=== PATIENT | female | born 1995 | race African-American/Black ===

== ENCOUNTER 2019-12-01 18:42 | Outpatient (CLI) | payer MEDICAID ==
[2019-12-01 19:05] LABS: BASOPHILS % (AUTO) 0.3 %; EOSINOPHILS # (AUTO) 0.1 10^3/uL (0.0-0.7); EOSINOPHILS % (AUTO) 1.8 %; HGB - HEMOGLOBIN 12.3 g/dL (12.0-16.0); LYMPHOCYTES # (AUTO) 1.8 10^3/uL (1.5-3.5); LYMPHOCYTES % (AUTO) 29.7 %; MEAN CORPUSCULAR HEMOGLOBIN 25.5 pg (27.0-31.0); MEAN CORPUSCULAR HGB CONC 31.9 g/dL (32.0-36.0); MEAN CORPUSCULAR VOLUME 79.9 fL (81.0-99.0); MEAN PLATELET VOLUME 11.4 fL (7.9-10.8); MONOCYTES # (AUTO) 0.5 10^3/uL (0.0-1.0); MONOCYTES % (AUTO) 8.2 %; NEUTROPHILS # (AUTO) 3.7 10^3/uL (1.5-6.6); NEUTROPHILS % (AUTO) 59.4 %; PLT - PLATELET COUNT 186 10^3/uL (130-450); RED BLOOD COUNT 4.82 10^6/uL (4.20-5.40); RED CELL DISTRIBUTION WIDTH 14.6 % (12.0-15.0); WHITE BLOOD COUNT 6.2 x10^3/uL (4.8-10.8)
[2019-12-01 19:15] LABS: ALBUMIN 3.2 g/dL (3.2-5.5); ALBUMIN/GLOBULIN RATIO 0.9 (1.0-2.2); BILIRUBIN,TOTAL 0.2 mg/dL (0.2-1.0); CALCIUM 9.3 mg/dL (8.5-10.3); TOTAL PROTEIN 6.8 g/dL (6.7-8.2)
[2019-12-01 19:44] LABS: CREATININE,URINE 118.1 mg/dL; PROTEIN/CREATININE RATIO,URINE 0.1 (<=0.2)
== END 2019-12-01 18:43 | disposition home or self-care (01) ==
LOC: LAB 18:42
PROVIDERS: ATTEND Midwife
DX: Z34.03 Encounter for supervision of normal first pregnancy, third trimester (principal)
CPT/HCPCS: 36415; 80053; 82570; 84156; 85025

== ENCOUNTER 2019-12-05 07:00 | Outpatient (CLI) | payer MEDICAID ==
[2019-12-05 14:57] LABS: CREATININE,URINE 204.6 mg/dL; PROTEIN/CREATININE RATIO,URINE 0.3 (<=0.2)
== END 2019-12-05 23:59 | disposition home or self-care (01) ==
LOC: LAB.R 07:00
PROVIDERS: ATTEND Midwife
DX: O16.3 Unspecified maternal hypertension, third trimester (principal)
CPT/HCPCS: 82570; 84156

== ENCOUNTER 2019-12-07 14:10 | Outpatient (CLI) | payer MEDICAID ==
[2019-12-07 14:42] LABS: CREATININE,URINE 233.2 mg/dL; PROTEIN/CREATININE RATIO,URINE 0.1 (<=0.2)
== END 2019-12-07 14:11 | disposition home or self-care (01) ==
LOC: LAB 14:10
PROVIDERS: ATTEND Midwife
DX: O16.3 Unspecified maternal hypertension, third trimester (principal)
CPT/HCPCS: 82570; 84156

== ENCOUNTER 2019-12-10 16:16 | Outpatient (CLI) | payer MEDICAID ==
--- NOTE | 2019-12-10 19:39 | Ultrasound Report ---
Reason: TRANSIENT HTN OF , GROWTH Procedure Date: 12/10/2019 Accession Number: [id number] / [id number] Procedure: US - OB F/U or Repeat CPT Code: Addended Final Report FULL RESULT: EXAM: FOLLOW-UP OBSTETRICAL ULTRASOUND. EXAM DATE: 12/10/2019 04:43 PM. CLINICAL HISTORY: Transient hypertension of . Check growth. COMPARISON: None. TECHNIQUE: Real-time sonographic evaluation of the fetus performed by the heddler. Multiple passenger relations representative static images were saved for review. DATING: Established EGA 36 weeks 0 days with MP 01/07/2020 based on established dating. EGA 33 weeks 2 days with MP 01/26/2020 based on the current ultrasound. GENERAL EVALUATION Fonseca . Cardiac activity: 137 bpm. movement: Visualized. Presentation: Cephalic. Placenta: Anterior position. Amniotic fluid: Normal. ANNELISE 16 cm. MVP 5.3 cm. BIOMETRY Bi-Parietal Diameter (BPD): Difficult to obtain, 8.7 cm, 34 weeks 6 days. Head Circumference (HC): 30.3 cm, 33 weeks 4 days. Abdominal Circumference (AC): 27.1 cm, 31 weeks 1 day. Femur Length (FL): 6.5 cm, 33 weeks 2 days. Estimated Weight: 1960 g, 0.9 percentile for 36 weeks 0 days. IMPRESSION: 1. Fonseca live intrauterine with gestational age 36 weeks 0 days based on established dating. 2. Estimated weight is significantly lagging, concerning for growth retardation. RADIA ADDENDUM: 12/11/19 15:23 Exam compared to report dated 08/21/2019, no images. Clinical MP 01/07/2020. MP by prior ultrasound 01/11/2020. Significant lag in interval growth.
== END 2019-12-10 16:17 | disposition home or self-care (01) ==
LOC: DI 16:16
PROVIDERS: ATTEND Midwife
DX: O13.9 Gestational [pregnancy-induced] hypertension without significant proteinuria, unspecified trimester (principal); Z3A.36 36 weeks gestation of pregnancy
CPT/HCPCS: 36415; 76816; 80053; 82570; 84156; 85025

== ENCOUNTER 2019-12-10 17:44 | Outpatient (CLI) | payer MEDICAID ==
[2019-12-10 18:02] LABS: BASOPHILS % (AUTO) 0.3 %; EOSINOPHILS # (AUTO) 0.1 10^3/uL (0.0-0.7); EOSINOPHILS % (AUTO) 0.8 %; HGB - HEMOGLOBIN 12.4 g/dL (12.0-16.0); LYMPHOCYTES # (AUTO) 2.1 10^3/uL (1.5-3.5); LYMPHOCYTES % (AUTO) 34.5 %; MEAN CORPUSCULAR HEMOGLOBIN 25.6 pg (27.0-31.0); MEAN CORPUSCULAR HGB CONC 31.9 g/dL (32.0-36.0); MEAN CORPUSCULAR VOLUME 80.4 fL (81.0-99.0); MEAN PLATELET VOLUME 11.1 fL (7.9-10.8); MONOCYTES # (AUTO) 0.4 10^3/uL (0.0-1.0); MONOCYTES % (AUTO) 6.7 %; NEUTROPHILS # (AUTO) 3.4 10^3/uL (1.5-6.6); NEUTROPHILS % (AUTO) 57.4 %; PLT - PLATELET COUNT 188 10^3/uL (130-450); RED BLOOD COUNT 4.84 10^6/uL (4.20-5.40); RED CELL DISTRIBUTION WIDTH 14.3 % (12.0-15.0)
[2019-12-10 18:13] LABS: CREATININE,URINE 92.6 mg/dL; PROTEIN/CREATININE RATIO,URINE 0.1 (<=0.2)
[2019-12-10 18:14] LABS: ALBUMIN 3.4 g/dL (3.2-5.5); ALBUMIN/GLOBULIN RATIO 0.9 (1.0-2.2); BILIRUBIN,TOTAL 0.6 mg/dL (0.2-1.0); CREATININE 0.8 mg/dL (0.4-1.0)
== END 2019-12-10 17:45 | disposition home or self-care (01) ==
LOC: LAB 17:44
PROVIDERS: ATTEND Midwife
DX: O13.9 Gestational [pregnancy-induced] hypertension without significant proteinuria, unspecified trimester (principal)
CPT/HCPCS: 36415; 80053; 82570; 84156; 85025

== ENCOUNTER 2019-12-15 13:06 | Outpatient (CLI) | payer MEDICAID ==
[2019-12-15 13:26] LABS: BASOPHILS % (AUTO) 0.4 %; EOSINOPHILS # (AUTO) 0.1 10^3/uL (0.0-0.7); EOSINOPHILS % (AUTO) 1.2 %; HGB - HEMOGLOBIN 12.5 g/dL (12.0-16.0); LYMPHOCYTES # (AUTO) 1.4 10^3/uL (1.5-3.5); LYMPHOCYTES % (AUTO) 26.5 %; MEAN CORPUSCULAR HEMOGLOBIN 25.5 pg (27.0-31.0); MEAN CORPUSCULAR HGB CONC 32.5 g/dL (32.0-36.0); MEAN CORPUSCULAR VOLUME 78.6 fL (81.0-99.0); MEAN PLATELET VOLUME 11.8 fL (7.9-10.8); MONOCYTES # (AUTO) 0.4 10^3/uL (0.0-1.0); MONOCYTES % (AUTO) 8.4 %; NEUTROPHILS # (AUTO) 3.2 10^3/uL (1.5-6.6); NEUTROPHILS % (AUTO) 62.9 %; PLT - PLATELET COUNT 211 10^3/uL (130-450); RED CELL DISTRIBUTION WIDTH 14.3 % (12.0-15.0); WHITE BLOOD COUNT 5.1 x10^3/uL (4.8-10.8)
[2019-12-15 13:36] LABS: CREATININE,URINE 82.2 mg/dL; PROTEIN/CREATININE RATIO,URINE 0.2 (<=0.2)
[2019-12-15 13:36] LABS: ALBUMIN 3.4 g/dL (3.2-5.5); BILIRUBIN,TOTAL 0.4 mg/dL (0.2-1.0); CALCIUM 9.1 mg/dL (8.5-10.3); CREATININE 0.7 mg/dL (0.4-1.0); TOTAL PROTEIN 6.8 g/dL (6.7-8.2)
== END 2019-12-15 13:07 | disposition home or self-care (01) ==
LOC: LAB 13:06
PROVIDERS: ATTEND Midwife
DX: O13.9 Gestational [pregnancy-induced] hypertension without significant proteinuria, unspecified trimester (principal)
CPT/HCPCS: 36415; 80053; 82570; 84156; 85025

== ENCOUNTER 2019-12-16 19:42 | Outpatient (CLI) | payer MEDICAID | END 2019-12-16 19:43 | disposition critical access hospital (66) | LOC: EMS 19:42 | PROVIDERS: ATTEND Surgery | DX: O99.89 Other specified diseases and conditions complicating pregnancy, childbirth and the puerperium (principal) | CPT/HCPCS: A0425; A0429 ==

== ENCOUNTER 2019-12-16 20:03 | Inpatient (IN) | payer MEDICAID ==
[2019-12-16] MEDS ORDERED: AMPICILLIN 2 GM in SODIUM CHLORIDE 0.9% MINIBAG 100 ML IV ONE (20:44)
[2019-12-16] MEDS ORDERED: LACTATED RINGERS 1,000 ML IV SCH (21:00)
[2019-12-16] MEDS ORDERED: NIFEdipine 10 MG CAPSULE PO ONE (21:11)
--- NOTE | 2019-12-16 21:46 | HISTORY & PHYSICAL EXAMINATION ---
Admit History - Other Maternal History Other Maternal History: CC: broken bag of water HPI: brought in via EMS for broken bag of frost. LOF at 7:30pm, clear and copious. No VB. Good FM. Having some contractions that are more than her usual chase duffy but are not severe. PMH: elevated BP later in per pt PSH: wisd[place] teeth Allergies: NKDA Meds: PNV daily SH: no t/e/d FH: no anesthesia problems ROS: no fevers, no URI sx, no CRAMER, no visual changes, no upper abd pain, no change in swelling OB: G1=current. Had care with [facility] midwives. S<D found, US ordered, and severe IUGR discovered today by US, EFW 4#13oz per pt. O: BP 150's/90s. Followed by normal BP. Followed by 164/96 Initally was alert, calm, NAD. Then UCs palpated moderate, pt breathing through and moaning with contractions. SVE initially fingertip/100/-1. Then 1cm/100/-1. Vertex. Category 1 NST initially. [place] neg initially, now q2min A/P: 24yo G1 at 36w6d by her report with PPROM, contractions, and severe IUGR. -- and GBS unknown. GBS swab sent. Ampicillin started. --FWB currently reassuring, vertex, category 1 --IUGR, peds aware and prepared. Initially tried to transport pt to [facility] due to the small size, prematurity, and increased risk of needing NICU support. helicopter team unable to fly, while arranging transport pt's labor became more prominent and her BPs increased to severe range. At this point the risk of transport (unattended delivery, worsening of BP, eclampsia out of hospital) outweigh the benefits of staying under constant MD supervision. Transport canceled. Pt was given nifedipine 20mg SL to try to stop UCs prior to transport. --Tocolytic given--if contractions disappear then may have to treat with pitocin to effect timely vaginal delivery --Severe-range BP--this was shortly after an IV start. Mild range BP was in triage shortly after ambulance arrival. No PIH sx. PIH labs sent. The nifedipine should bring down her BPs. If she persists in having severe-range BPs then she may need magnesium tocolysis. -- records not here, we are coordinating with professional volleyball player to obtain copies. ~~~~~~~~~~~~~~~~~~~~~~~~~~~~~~~ 22:44 patient with a category 2 tracing with bradycardia. Position changed, bolus started, O2 placed. Tracing not picking up well so FSE placed. Lots of thick curly hair on baby's head and FSE was not tracing at all. Changed to external monitoring now and have a good tracing. Pt's FHTs recovered without need for terbutaline. Had what was possibly 3 late decels after recovery from the bradycardia but difficult to ascertain as toco is not picking up well. No room to place IUPC currently. As time has gone by, pt's recovery has completed with a normal baseline, mod LTV, accels present and decels absent. O: Current BP 137/77. DTR 1+ biLateral patellar. Lungs CTA bilat. Cor RRR 1 /6 HSM. No LE edema. Abd soft, nt/nd. Blood PIH labs are normal. No urine to send yet. With pt's BPs now normal, no sx, 1+ DTR, I would not mag right now. Will obtain urine as able. Record review: Dating: MP 01/07/20. Dated by 9wUS off 10d from LMP. LMP 03/22 --> 12/27/2019. US 06/06 AUA 9w2d --> 01/07/20 Labs: B+, antibody neg, Hct 38, plts 193, A1c 5. Neg Hep B, syphilis, HIV, gonorrhea. UA normal. Hb electrophoresis: possible alpha thal trait. RI, , 1h 96 Neg genetic and infection questions Anatomy scan normal, normal fluid, anterior placenta, no previa Problems: --Chlamydia treated 06/2019, neg BUSHRA 08/2019 --Severe IUGR. Was S=D at her 20w US. 12/10/19 EFW 1st %ile, asymmetric, ANNELISE 16. --Gestational HTN with one P:C ratio of 0.3 on 12/05 followed by normal one 0.1 on 12/07. BPs in clinic for the past 3w: 138/100, 150/90, 148/90, 135/95, 152/94 --Complex right ov cyst 3.6cm at 9w, resolved at 20w US --Obese startting BMI 35 A/P: continue to monitor BP and FHTs closely Get P:C ratio and urine gc/ct Hope for if fetus will tolerate labor. As the nifedipine wears off hopefully FHTs will be more resilient. Continue ampicillin for GBS unknown and Meds/Allgy - Allergies Allergies/Adverse Reactions: Allergies Allergy/AdvReac Type Severity Reaction Status Date / Time crab Allergy Unknown Verified 12/16/19 21:04 Physical - Abdominal Exam Vital Signs: Temp Pulse Resp BP Pulse Ox 97.9 F 86 20 153/96 H 12/16/19 20:15 12/16/19 20:15 12/16/19 20:15 12/16/19 20:15
[2019-12-16] MEDS ORDERED: TERBUTALINE 1 MG/ML VIAL SUBQ ONE ×2 (22:08→22:47)
[2019-12-16 22:24] LABS: BASOPHILS % (AUTO) 0.3 %; EOSINOPHILS # (AUTO) 0.1 10^3/uL (0.0-0.7); EOSINOPHILS % (AUTO) 1.2 %; HGB - HEMOGLOBIN 12.1 g/dL (12.0-16.0); LYMPHOCYTES # (AUTO) 2.5 10^3/uL (1.5-3.5); MEAN CORPUSCULAR HEMOGLOBIN 25.7 pg (27.0-31.0); MEAN CORPUSCULAR HGB CONC 32.5 g/dL (32.0-36.0); MEAN CORPUSCULAR VOLUME 79.1 fL (81.0-99.0); MONOCYTES # (AUTO) 0.6 10^3/uL (0.0-1.0); MONOCYTES % (AUTO) 7.5 %; NEUTROPHILS # (AUTO) 4.1 10^3/uL (1.5-6.6); NEUTROPHILS % (AUTO) 56.5 %; PLT - PLATELET COUNT 192 10^3/uL (130-450); RED CELL DISTRIBUTION WIDTH 14.2 % (12.0-15.0); WHITE BLOOD COUNT 7.3 x10^3/uL (4.8-10.8)
[2019-12-16 22:37] LABS: ALBUMIN 3.4 g/dL (3.2-5.5); ALBUMIN/GLOBULIN RATIO 0.9 (1.0-2.2); BILIRUBIN,TOTAL 0.5 mg/dL (0.2-1.0); CALCIUM 8.8 mg/dL (8.5-10.3); CREATININE 0.8 mg/dL (0.4-1.0); URIC ACID 6.5 mg/dL (2.6-7.2)
[2019-12-16] MEDS ORDERED: ROPIVACAINE 0.2% 200 MG/100 ML BAG EP ONE (23:29)
[2019-12-16] MEDS ORDERED: OXYTOCIN/DEXTROSE 5 % 30 UNIT/500 ML BAG IV ONE (23:46)
[2019-12-17] MEDS ORDERED: HYDROCORTISONE 1% CREAM 28 GM TUBE PR PRN (00:03)
[2019-12-17] MEDS ORDERED: OXYTOCIN/DEXTROSE 5 % 30 UNIT/500 ML BAG IV PRN (00:03)
[2019-12-17] MEDS ORDERED: WITCH HAZEL/GLYCERIN 1 PAD TOP PRN (00:03)
[2019-12-17] MEDS ORDERED: MAGNESIUM HYDROXIDE 2,400 MG/30 ML UDC PO PRN (00:03)
[2019-12-17] MEDS ORDERED: ONDANSETRON ODT 4 MG TABLET TL PRN (00:03)
[2019-12-17] MEDS ORDERED: SIMETHICONE CHEW 80 MG TABLET PO PRN (00:03)
--- NOTE | 2019-12-17 00:11 | DELIVERY NOTE ---
Delivery Note - Labor Labor: positive: Spontaneous - Delivery Method Delivery Method: positive: Spontaneous vaginal delivery - Presentation Presentation: positive: Vertex - Nuchal Cord Nuchal Cord: positive: None - Anesthetic Anesthetic Type: - Amniotic Fluid Description Amniotic Fluid Description: positive: Clear - Episiotomy Type Episiotomy Type: positive: None - Laceration Laceration: positive: None - Delivery Outcome Delivery Outcome: positive: Livebirth - [place]: positive: Placed in direct skin contact with mother, Suctioned, Stimulated, Warmed, [place] used sex: positive: Female - Cord Cord: positive: 3 vessels - Placenta Placenta: positive: Intact - Estimated Blood Loss Estimated Blood Loss (in cc): 30 - Post Delivery Events Post Delivery Events: positive: No post delivery events - Delivery Comments (Free Text/Narrative) Delivery Comments (Free Text/Narrative): Pt with PPROM at 36w6d and then spontaneous labor. Requested epidural, sat up to get it, felt the baby coming out. Pushed for 3min to deliver. RT and RN in room, peds called from home. Vigorous baby at . Cord left pulsating until it stopped. Cord clamped and cut, baby went to warmer for assessment. Cord blood obtained for typing. Placenta delivered with maternal push; peripheral cord insertion and large calcifications seen; sent to pathology. No lacerations. will watch maternal BPs closely, repeat PIH labs, do P:C. Repeat gc/ct with chlam + in 1st trimester.
[2019-12-17] MEDS: ACETAMINOPHEN 500 MG TABLET PO PRN ×3 (00:44→19:04)
[2019-12-17] MEDS: IBUPROFEN 600 MG TABLET PO PRN ×3 (00:45→19:04)
[2019-12-17] MEDS ORDERED: SODIUM CHLORIDE FLUSH 0.9% 10 ML SYRINGE IVP SCH (01:00)
[2019-12-17] MEDS: DOCUSATE SODIUM 100 MG CAPSULE PO SCH ×2 (01:49→10:49)
[2019-12-17] MEDS ORDERED: DOCUSATE SODIUM 100 MG CAPSULE PO ONE (01:51)
[2019-12-17 02:34] LABS: CREATININE,URINE 122.8 mg/dL; PROTEIN/CREATININE RATIO,URINE 1.6 (<=0.2)
[2019-12-17 07:38] LABS: BASOPHILS % (AUTO) 0.2 %; EOSINOPHILS % (AUTO) 0.1 %; HGB - HEMOGLOBIN 11.7 g/dL (12.0-16.0); LYMPHOCYTES # (AUTO) 1.3 10^3/uL (1.5-3.5); MEAN CORPUSCULAR HEMOGLOBIN 25.9 pg (27.0-31.0); MEAN CORPUSCULAR HGB CONC 32.9 g/dL (32.0-36.0); MEAN CORPUSCULAR VOLUME 78.9 fL (81.0-99.0); MEAN PLATELET VOLUME 11.1 fL (7.9-10.8); MONOCYTES # (AUTO) 0.4 10^3/uL (0.0-1.0); NEUTROPHILS # (AUTO) 8.2 10^3/uL (1.5-6.6); NEUTROPHILS % (AUTO) 82.2 %; PLT - PLATELET COUNT 177 10^3/uL (130-450); RED BLOOD COUNT 4.51 10^6/uL (4.20-5.40); RED CELL DISTRIBUTION WIDTH 14.4 % (12.0-15.0); WHITE BLOOD COUNT 9.9 x10^3/uL (4.8-10.8)
[2019-12-17 07:52] LABS: ALBUMIN/GLOBULIN RATIO 0.9 (1.0-2.2); BILIRUBIN,TOTAL 0.4 mg/dL (0.2-1.0); CALCIUM 8.9 mg/dL (8.5-10.3); CREATININE 0.6 mg/dL (0.4-1.0); TOTAL PROTEIN 6.2 g/dL (6.7-8.2); URIC ACID 6.2 mg/dL (2.6-7.2)
[2019-12-17] MEDS ORDERED: TETANUS/DIPHTHERIA/PERTUSSIS 0.5 ML SYRINGE IM ONE (10:20)
--- NOTE | 2019-12-17 10:20 | PROVIDER PROGRESS NOTE ---
Subjective - Subjective Subjective: Feeling well. No CRAMER, no visual changes, no upper abd pain. No heavy bleeding. BM and urinate well. Latching well. Happy. Mild range BPs. otherwise AVSS Alert, NAD Abd soft, nt/nd Fundus firm 4cm below U No LE edema Blood PIH normal. P:C >1 24yo P1 PPD #0 s/p at 36w6d following PPROM. Preg complicated by severe asymmetric IUGR. Also with preeclampsia diagnosed here. No severe features present. Discussed preeclampsia, can worsen, warning signs, need to monitor BP life-long, reduce CV disease risk, lipid screen, take ASA next preg, growth US next preg. Anticipate discharge on Sunday am at >48h for baby. s/p flu vax. Tdap to be given here today. Objective - Vital Signs/Intake & Output Vital Signs: Vital Signs x48h Temp Pulse Resp BP Pulse Ox 12/17/19 07:50 99.0 F 92 18 147/98 H 100 12/17/19 06:18 138/91 H 12/17/19 04:24 98.8 F 97 16 144/87 H 12/17/19 03:29 16 144/82 H 12/17/19 02:18 103 H 16 158/82 H 100 Intake & Output: Intake & Output 12/14/19 12/15/19 12/16/19 12/17/19 23:59 23:59 23:59 23:59 Intake Total 500 Output Total 300 Balance 200 - Lab Results Fish Bones: 12/17/19 07:30 12/17/19 07:30 Other Labs: Lab Results x24hrs 12/17/19 12/17/19 12/17/19 Range/Units 07:30 07:30 01:20 WBC 9.9 (4.8-10.8) x10^3/uL RBC 4.51 (4.20-5.40) 10^6/uL Hgb 11.7 L (12.0-16.0) g/dL Hct 35.6 L (37.0-47.0) % MCV 78.9 L (81.0-99.0) fL MCH 25.9 L (27.0-31.0) pg MCHC 32.9 (32.0-36.0) g/dL RDW 14.4 (12.0-15.0) % Plt Count 177 (130-450) 10^3/uL MPV 11.1 H (7.9-10.8) fL Neut # (Auto) 8.2 H (1.5-6.6) 10^3/uL Lymph # (Auto) 1.3 L (1.5-3.5) 10^3/uL [place] # (Auto) 0.4 (0.0-1.0) 10^3/uL Eos # (Auto) 0.0 (0.0-0.7) 10^3/uL Baso # (Auto) 0.0 (0.0-0.1) 10^3/uL Absolute Nucleated RBC 0.00 x10^3/uL Nucleated RBC % 0.0 /100WBC Sodium 137 (135-145) mmol/L Potassium 4.1 (3.5-5.0) mmol/L Chloride 109 (101-111) mmol/L Carbon Dioxide 20 L (21-32) mmol/L Anion Gap 8.0 (6-13) BUN 12 (6-20) mg/dL Creatinine 0.6 (0.4-1.0) mg/dL Estimated GFR (MDRD) 148 (>89) Glucose 135 H (70-100) mg/dL Uric Acid 6.2 (2.6-7.2) mg/dL Calcium 8.9 (8.5-10.3) mg/dL Total Bilirubin 0.4 (0.2-1.0) mg/dL AST 22 (10-42) IU/L ALT 17 (10-60) IU/L Alkaline Phosphatase 109 (42-121) IU/L Total Protein 6.2 L (6.7-8.2) g/dL Albumin 3.0 L (3.2-5.5) g/dL Globulin 3.2 (2.1-4.2) g/dL Albumin/Globulin Ratio 0.9 L (1.0-2.2) Urine Creatinine 122.8 mg/dL Ur Total Protein Timed 202 mg/dL Protein/Creatinin Ratio 1.6 H (<=0.2) Blood Type Blood Type Recheck Antibody Screen 12/16/19 12/16/19 12/16/19 Range/Units 22:15 22:15 22:15 WBC 7.3 (4.8-10.8) x10^3/uL RBC 4.70 (4.20-5.40) 10^6/uL Hgb 12.1 (12.0-16.0) g/dL Hct 37.2 (37.0-47.0) % MCV 79.1 L (81.0-99.0) fL MCH 25.7 L (27.0-31.0) pg MCHC 32.5 (32.0-36.0) g/dL RDW 14.2 (12.0-15.0) % Plt Count 192 (130-450) 10^3/uL MPV 12.0 H (7.9-10.8) fL Neut # (Auto) 4.1 (1.5-6.6) 10^3/uL Lymph # (Auto) 2.5 (1.5-3.5) 10^3/uL [place] # (Auto) 0.6 (0.0-1.0) 10^3/uL Eos # (Auto) 0.1 (0.0-0.7) 10^3/uL Baso # (Auto) 0.0 (0.0-0.1) 10^3/uL Absolute Nucleated RBC 0.00 x10^3/uL Nucleated RBC % 0.0 /100WBC Sodium 136 (135-145) mmol/L Potassium 3.3 L (3.5-5.0) mmol/L Chloride 104 (101-111) mmol/L Carbon Dioxide 19 L (21-32) mmol/L Anion Gap 13.0 (6-13) BUN 14 (6-20) mg/dL Creatinine 0.8 (0.4-1.0) mg/dL Estimated GFR (MDRD) 106 (>89) Glucose 99 (70-100) mg/dL Uric Acid 6.5 (2.6-7.2) mg/dL Calcium 8.8 (8.5-10.3) mg/dL Total Bilirubin 0.5 (0.2-1.0) mg/dL AST 19 (10-42) IU/L ALT 16 (10-60) IU/L Alkaline Phosphatase 125 H (42-121) IU/L Total Protein 7.0 (6.7-8.2) g/dL Albumin 3.4 (3.2-5.5) g/dL Globulin 3.6 (2.1-4.2) g/dL Albumin/Globulin Ratio 0.9 L (1.0-2.2) Urine Creatinine mg/dL Ur Total Protein Timed mg/dL Protein/Creatinin Ratio (<=0.2) Blood Type B POSITIVE Blood Type Recheck Antibody Screen NEGATIVE 12/16/19 Range/Units 07:30 WBC (4.8-10.8) x10^3/uL RBC (4.20-5.40) 10^6/uL Hgb (12.0-16.0) g/dL Hct (37.0-47.0) % MCV (81.0-99.0) fL MCH (27.0-31.0) pg MCHC (32.0-36.0) g/dL RDW (12.0-15.0) % Plt Count (130-450) 10^3/uL MPV (7.9-10.8) fL Neut # (Auto) (1.5-6.6) 10^3/uL Lymph # (Auto) (1.5-3.5) 10^3/uL [place] # (Auto) (0.0-1.0) 10^3/uL Eos # (Auto) (0.0-0.7) 10^3/uL Baso # (Auto) (0.0-0.1) 10^3/uL Absolute Nucleated RBC x10^3/uL Nucleated RBC % /100WBC Sodium (135-145) mmol/L Potassium (3.5-5.0) mmol/L Chloride (101-111) mmol/L Carbon Dioxide (21-32) mmol/L Anion Gap (6-13) BUN (6-20) mg/dL Creatinine (0.4-1.0) mg/dL Estimated GFR (MDRD) (>89) Glucose (70-100) mg/dL Uric Acid (2.6-7.2) mg/dL Calcium (8.5-10.3) mg/dL Total Bilirubin (0.2-1.0) mg/dL AST (10-42) IU/L ALT (10-60) IU/L Alkaline Phosphatase (42-121) IU/L Total Protein (6.7-8.2) g/dL Albumin (3.2-5.5) g/dL Globulin (2.1-4.2) g/dL Albumin/Globulin Ratio (1.0-2.2) Urine Creatinine mg/dL Ur Total Protein Timed mg/dL Protein/Creatinin Ratio (<=0.2) Blood Type Blood Type Recheck B POSITIVE Antibody Screen
[2019-12-17] MEDS: SODIUM CHLORIDE FLUSH 0.9% 10 ML SYRINGE IVP PRN (10:48)
[2019-12-17 21:55] LABS: TRICHOMONAS VAGINALIS DNA NEGATIVE (NEGATIVE)
[2019-12-18] MEDS: SODIUM CHLORIDE FLUSH 0.9% 10 ML SYRINGE IVP PRN (08:41)
[2019-12-18] MEDS ORDERED: NIFEdipine ER 30 MG TABLET PO SCH (09:00)
[2019-12-18] MEDS: DOCUSATE SODIUM 100 MG CAPSULE PO SCH (09:12)
--- NOTE | 2019-12-18 10:44 | PROVIDER PROGRESS NOTE ---
Subjective - Subjective Subjective: Doing well, no new problems. happy, well. Eat, ambulate, urinate, BM Ok. Scant bleeding. No CRAMER, no visual changes, no upper abd pain. O: BPs persistent mild range Alert, cuddling baby, NAD Abd soft, nt/nd Fundus firm 3cm below U No LE Edema A/P: preeclampsia without severe features, persistently elevated BP, will start nifedipine xl 30mg daily. Otherwise routine care. Objective - Vital Signs/Intake & Output Vital Signs: Vital Signs x48h Temp Pulse Resp BP BP Pulse Ox 12/18/19 08:44 98.4 F 65 14 140/89 H 100 12/18/19 06:34 135/78 H 12/18/19 04:37 97.7 F 70 16 153/97 H 100 Intake & Output: Intake & Output 12/15/19 12/16/19 12/17/19 12/18/19 23:59 23:59 23:59 23:59 Intake Total 500 Output Total 300 Balance 200 - Lab Results Fish Bones: 12/17/19 07:30 12/17/19 07:30 Other Labs: Lab Results x24hrs 12/17/19 12/16/19 Range/Units 01:20 20:35 Chlam trachomat DNA PCR NEGATIVE (NEGATIVE) N.gonorrhoeae DNA (PCR) NEGATIVE (NEGATIVE) Group B Strep (PCR) NEGATIVE (NEGATIVE) T. vaginalis (PCR) NEGATIVE (NEGATIVE)
[2019-12-18 16:21] VITALS: BP 137/76
--- NOTE | 2019-12-18 17:26 | Discharge Plan ---
Discharge Plan Problem Reviewed?: Yes Disposition: Home, Self Care Condition: Good Diet: Regular Activity Restrictions: no intercourse for 6w Shower Restrictions: No Driving Restrictions: No Additional Instructions or Follow Up instructions: 1. Buy a blood pressure cuff (wrist one). Be quiet and don't cross your legs when you check it. Write down the numbers. 2. Seek immediate medical care if you have a severe headache, visual changes (spots or flashers), or upper abdominal pain, "top" blood pressure number 165 or higher, "bottom" blood pressure number 105 or higher. 3. If your blood pressures are dropping, you may feel tired, headache-y, dizzy, or weak. If your "top" number is 120 or lower, or your "bottom" number is 70 or lower, then it may be time to stop the nifedipine blood pressure medication. Call [facility]'s clinic to find out if you should stop the medication: Good luck to you and your family! Please call the clinic anytime if you have questions. Fanny Nicholas MD No Smoking: If you smoke, Please STOP! Call for help. Follow-up with: CÉSAR LIMA MD, PHD [Physician No Access] - 4 Weeks
--- NOTE | 2019-12-18 18:46 | Labor Flowsheet ---
Labor Flowsheet Datetime Report Generated by CPN: 12/18/2019 18:45 Datetime: 12/18/2019 16:20 VITAL SIGNS NBP Sys/Makayla/Mean (mmHg): 137 : 76 : 90 Pulse: 83 Datetime: 12/18/2019 16:18 SpO2 (%): 100 Datetime: 12/17/2019 02:18 Stage of : Recovery Respirations: 16 PAIN Pain Scale: 0 Pain Presence: None/Denies Datetime: 12/16/2019 23:50 MEDICATIONS Medication Comments: PP Pitocin started infusing at 125cc Datetime: 12/16/2019 23:44 STAGE 2 Stage 2 Comments: viable female. Infant placed skin to skin with mother. Datetime: 12/16/2019 23:43 LaborFlag: Labor Datetime: 12/16/2019 23:39 Vaginal Exam Comments: Anesthesia Comments: Epidural placement cancelled. Communication Comments: Dr. Nicholas called for delivery in pt room Datetime: 12/16/2019 23:35 Patient Care Comments: pt bearing down with contractions while sitting up for epidural, called for MD, checked pt, epidural placement discontinued Datetime: 12/16/2019 23:34 Epidural Positioning: Sitting Datetime: 12/16/2019 23:31 PROCEDURE TIME OUT Procedure Verify: Agreement on Procedure to be Done ANESTHESIA Anesthesia Plans: Epidural Datetime: 12/16/2019 23:30 UTERINE ACTIVITY Monitor Mode: External Frequency (min): 1.5-4 Quality: Strong Duration (sec): 60-80 ASSESSMENT A Monitor Mode: External US FHR Baseline Rate : 125 Variability: Moderate 6-25 bpm Accelerations: 15X15 Decelerations: Early; Variable Oxygen Method: Non-Rebreather Datetime: 12/16/2019 23:27 Actions for Decelerations: Side to Side Patient Position/Activity: Right Lateral Datetime: 12/16/2019 23:04 Pain Coping: Requesting Pain Medication or Epidural Datetime: 12/16/2019 23:01 Temperature (C): 36.4 Datetime: 12/16/2019 22:53 Pain Type: Cramping Pain Location: Abdomen; Back Pain Relief Measures: Comfort Measures Comfort Measures: Breathing/Relaxation; Coaching; Family Support Datetime: 12/16/2019 22:30 Monitor Interventions for FHR: FSE Applied Comments: FSE poor filler picker PATIENT CARE Oxygen Amount (LPM): 10 Datetime: 12/16/2019 22:00 COMMUNICATION Communication: RN at Bedside Datetime: 12/16/2019 21:36 Membranes Ruptured Date/Time: 12/16/2019 19:25 Membranes Rupture Method: Spontaneous Amniotic Fluid Color: Clear Amniotic Fluid Amount: Small Amniotic Fluid Odor: Normal Datetime: 12/16/2019 21:30 Pattern: Normal: <= 5 Contractions in 10 Minutes Resting Tone (Palpate): Relaxed Datetime: 12/16/2019 21:20 VAGINAL EXAM Effacement (%): 50 Datetime: 12/16/2019 21:00 Monitor Interventions for UA: Combine Adjusted
--- NOTE | 2019-12-18 20:30 | DISCHARGE SUMMARY ---
Physician: Fanny Nicholas MD DATE OF ADMISSION: 12/16/2019 DATE OF DISCHARGE: 12/18/2019 ADMITTING DIAGNOSES 1. premature rupture of membranes. 2. Severe intrauterine growth restriction. 3. Elevated blood pressures. DISCHARGE DIAGNOSES 1. Status post vaginal delivery. 2. was small for gestational age, and had an imperforate anus with a rectovaginal fistula. 3. Preeclampsia without severe features. OPERATIONS AND PROCEDURES: On 12/17/2019 spontaneous vaginal delivery of a liveborn female. The bir th was uncomplicated. Infant was small for gestational age as expected. HOSPITAL COURSE: Patient was admitted with spontaneous rupture of membranes at 36 weeks and 6 days. She had been cared for by the lay midwives in [place]. She had planned an induction of labor at 3 7 weeks due to severe intrauterine growth restriction at [place]. Upon admission, she did have el evated blood pressures. [facility] labs revealed abnormal protein to creatinine ratio. The rest of her blo od work was normal. She never developed a significant headache, visual changes, or upper abdominal p ain. She had rare, severe range blood pressures that were immediately followed by mild range blood p ressures. Due to this, she never received magnesium tocolysis. On day 2, she was started on nifedipine due to persistently elevated blood pressures. This was successful in bringing her blo od pressure down to normal to low mild range. She will be sent home on nifedipine with instructions to check her blood pressure daily and to call the clinic for guidance about hypertensive medication d osing. Patient's course was remarkable for her small for gestational age baby. Her daughter was doing quite well overall, but then on day of life 2 she was found to have the rectovaginal fistula an d the imperforate anus. She is being transported to [facility] for surgery. Mom is being d ischarged so that she can accompany her baby. Mom has begun pumping and previously was very well. She is coping well with the surprise news. Otherwise her course has been remarkable for not having received a TDaP vaccine. She rece ived this prior to discharge. She had already received her flu vaccination during . By pos tpartum day 2, she was eating, ambulating, and urinating well. She was well. No heavy vaginal bleeding. No mood changes. Her blood pressures after the nifedipine were around 137/92. S he was alert and smiling, in no apparent distress. Abdomen: Soft, nontender, nondistended. Fundus firm, nontender, and 1 cm below the umbilicus. There was no lower extremity edema. Post- caleb tocrit was 35.6. DISCHARGE MEDICATIONS 1. Continue vitamins. 2. Ibuprofen p.r.n. pain. 3. Colace p.r.n. to soften stool. 4. Nifedipine XL 30 mg p.o. daily. DISCHARGE INSTRUCTIONS 1. Routine instructions. 2. Preeclampsia precautions. 3. Check blood pressure daily and also p.r.n. feeling poorly. Continue nifedipine. Once blood pres sures drop to under 120s systolic or under 70 diastolic, call the clinic to see if blood pressure med icine should be stopped or not. FOLLOWUP: Usually we would do a 1 week followup, but this patient will probably be busy attending to her daughter. She is reliable and so we will do more home management with her. She will follow up in 4 weeks in clinic and sooner by phone for blood pressure issues. DISCHARGE DISPOSITION: Home. CONDITION: Good. TD: 12/18/2019 17:39
== END 2019-12-18 18:40 | disposition home or self-care (01) | DRG 806 ==
LOC: WFO 20:03 → FBP 20:11 → WFO 20:43 → FBP 20:44
PROVIDERS: ADMIT Obstetrics & Gynecology; ATTEND Obstetrics & Gynecology
PROC: 10E0XZZ Delivery of Products of Conception, External Approach (ICD-10-PCS; principal; 2019-12-17)
DX: O42.013 Preterm premature rupture of membranes, onset of labor within 24 hours of rupture, third trimester (principal); O98.32 Other infections with a predominantly sexual mode of transmission complicating childbirth; Z37.0 Single live birth; A56.8 Sexually transmitted chlamydial infection of other sites; O36.5930 Maternal care for other known or suspected poor fetal growth, third trimester, not applicable or unspecified; O14.94 Unspecified pre-eclampsia, complicating childbirth; O14.95 Unspecified pre-eclampsia, complicating the puerperium; O99.214 Obesity complicating childbirth; Z3A.36 36 weeks gestation of pregnancy
CPT/HCPCS: 36415; 80053; 82570; 84156; 84550; 85025; 86850; 86900; 86901; 87491; 87591; 87661; 87797; 90715; A9270; J7120

== ENCOUNTER 2020-05-26 12:47 | Outpatient (CLI) | payer MEDICAID ==
--- NOTE | 2020-05-26 15:17 | Ultrasound Report ---
PROCEDURE: OB First Trimester INDICATIONS: POSITIVE TEST OUTSIDE/PRIOR DATING DATA: Last menstrual period (LMP): 03/26/2020. LMP-based estimated date of delivery (MP): 12/31/2020. First dating scan (date and location): 05/26/2020. Estimated date of delivery (MP) from first dating scan: 01/17/2021. TECHNIQUE: Real-time scanning was performed of the fetus and maternal pelvic organs, with image documentation. COMPARISON: None FINDINGS: Embryo: Intrauterine gestational sac is identified. A very small pole is identified measuring 4 mm corresponding to 6 weeks 2 days. No heart tones are identified. Measurement variability in dating: +/- 4 weeks by LMP, +/- 7 days by mean sac diameter (use before 6 weeks gestation if crown-rump length not able to be measured), +/- 5 days by crown-rump length (6-12 weeks gestation). Maternal organs: Ovaries are unremarkable. Limited images through the kidneys demonstrate no hydron ephrosis. IMPRESSION: 1. Intrauterine gestational sac with small pole as above. No heart tones are identified. This may be secondary to early gestational age. Recommend short interval imaging follow-up for docume ntation of heart tones. Reviewed by: Aria Fraga MD on 05/26/2020 3:16 PM PDT Approved by: Aria Fraga MD on 05/26/2020 3:16 PM PDT Station ID: [id number]
--- NOTE | 2020-05-26 15:18 | Ultrasound Report ---
PROCEDURE: OB First Trimester INDICATIONS: POSITIVE TEST OUTSIDE/PRIOR DATING DATA: Last menstrual period (LMP): 03/26/2020. LMP-based estimated date of delivery (MP): 12/31/2020. First dating scan (date and location): 05/26/2020. Estimated date of delivery (MP) from first dating scan: 01/17/2021. TECHNIQUE: Real-time scanning was performed of the fetus and maternal pelvic organs, with image documentation. COMPARISON: None FINDINGS: Embryo: Intrauterine gestational sac is identified. A very small pole is identified measuring 4 mm corresponding to 6 weeks 2 days. No heart tones are identified. Measurement variability in dating: +/- 4 weeks by LMP, +/- 7 days by mean sac diameter (use before 6 weeks gestation if crown-rump length not able to be measured), +/- 5 days by crown-rump length (6-12 weeks gestation). Maternal organs: Ovaries are unremarkable. Limited images through the kidneys demonstrate no hydron ephrosis. IMPRESSION: 1. Intrauterine gestational sac with small pole as above. No heart tones are identified. This may be secondary to early gestational age. Recommend short interval imaging follow-up for docume ntation of heart tones. Reviewed by: Aria Fraga MD on 05/26/2020 3:17 PM PDT Approved by: Aria Fraga MD on 05/26/2020 3:17 PM PDT Station ID: [id number]
== END 2020-05-26 12:48 | disposition home or self-care (01) ==
LOC: DI 12:47
PROVIDERS: ATTEND Obstetrics & Gynecology
DX: Z32.01 Encounter for pregnancy test, result positive (principal)
CPT/HCPCS: 76801; 76817

== ENCOUNTER 2020-06-09 06:48 | Outpatient (CLI) | payer MEDICAID ==
--- NOTE | 2020-06-09 08:51 | Ultrasound Report ---
PROCEDURE: OB First Trimester INDICATIONS: POSITIVE TEST OUTSIDE/PRIOR DATING DATA: Last menstrual period (LMP): 03/26/2020. LMP-based estimated date of delivery (MP): 12/31/2020. First dating scan (date and location): 05/26/2020. Estimated date of delivery (MP) from first dating scan: 01/17/2021. TECHNIQUE: Real-time scanning was performed of the fetus and maternal pelvic organs, with image documentation. COMPARISON: Prior OB ultrasound for this . FINDINGS: A viable gestation. Embryo: There is a single living intrauterine gestation with heart rate 1 53 bpm, and with a crown-r ump length of 1.7 cm correlated with a gestational age estimate of 8 weeks 1 day, +/- 5 days. There h as been appropriate interval growth from the first OB ultrasound. Measurement variability in dating: +/- 4 weeks by LMP, +/- 7 days by mean sac diameter (use before 6 weeks gestation if crown-rump length not able to be measured), +/- 5 days by crown-rump length (6-12 weeks gestation). Maternal organs: Ovaries normal considering gestational status. Limited images through the kidneys demonstrate no hydronephrosis. IMPRESSION: heart rate is now identified, 1 53 bpm. Appropriate interval growth. The delivery date is proje cted to be centered on 01/17/2021 +/- 5 days. Follow-up anatomic survey at approximately 20 week s gestation is recommended. Reviewed by: Delonte Guzman MD on 06/09/2020 8:49 AM PDT Approved by: Delonte Guzman MD on 06/09/2020 8:49 AM PDT Station ID: [id number]
== END 2020-06-09 06:49 | disposition home or self-care (01) ==
LOC: DI 06:48
PROVIDERS: ATTEND Obstetrics & Gynecology
DX: Z32.01 Encounter for pregnancy test, result positive (principal)
CPT/HCPCS: 76801

== ENCOUNTER 2020-06-10 12:01 | Outpatient (CLI) | payer MEDICAID ==
[2020-06-10 16:40] LABS: BILIRUBIN,URINE NEGATIVE (NEGATIVE); GLUCOSE, URINE (UA) NEGATIVE (NEGATIVE); KETONES,URINE (UA) TRACE mg/dL (NEGATIVE); LEUKOCYTE ESTERASE, URINE NEGATIVE (NEGATIVE); NITRITE,URINE NEGATIVE (NEGATIVE); OCCULT BLOOD,URINE NEGATIVE (NEGATIVE); PROTEIN,URINE NEGATIVE (NEGATIVE); UROBILINOGEN,URINE 0.2 (NORMAL) E.U./dL (NORMAL)
[2020-06-10 16:53] LABS: AMORPHOUS SEDIMENT,UR Marked /LPF; BACTERIA,URINE None Seen /HPF (None Seen); CLARITY,URINE CLOUDY (CLEAR); RBC,URINE None Seen /HPF (0-5); SQUAMOUS EPITHELIAL CELL,UR NONE SEEN (<= Few)
[2020-06-10 21:22] LABS: TRICHOMONAS VAGINALIS DNA NEGATIVE (NEGATIVE)
== END 2020-06-10 23:59 | disposition home or self-care (01) ==
LOC: LAB.R 12:01
PROVIDERS: ATTEND Obstetrics & Gynecology
DX: Z36.89 Encounter for other specified antenatal screening (principal); Z11.3 Encounter for screening for infections with a predominantly sexual mode of transmission
CPT/HCPCS: 81001; 87086; 87491; 87591; 87661

== ENCOUNTER 2020-06-26 12:12 | Emergency (ER) | payer MEDICAID ==
[2020-06-26 12:20] VITALS: BP 132/73
--- NOTE | 2020-06-26 12:36 | ED Physician Documentation ---
History of Present Illness - Stated complaint Stated Complaint: CHILLS/SNEEZING - Chief complaint Chief Complaint: General - History obtained from History obtained from: Patient - Additonal information Additional information: G2 at 10 weeks gestation has had 2 weeks of nasal congestion with nonproductive cough and chills. No fevers, sick contacts, shortness of breath, earache, or sore throat. No recent travel. Review of Systems Constitutional: reports: Chills. denies: Fever Ears: denies: Loss of hearing, Ear pain, Drainage/discharge Nose: reports: Rhinorrhea / runny nose, Congestion. denies: Sinus pressure / pain Throat: denies: Sore throat Cardiac: denies: Chest pain / pressure, Palpitations Respiratory: denies: Dyspnea PD PAST MEDICAL HISTORY - Allergies Allergies/Adverse Reactions: Allergies Allergy/AdvReac Type Severity Reaction Status Date / Time crab Allergy Unknown Verified 06/26/20 12:19 - Social History Smoking Status: Unknown if ever smoked PD ED PE NORMAL - Vitals Vital signs reviewed: Yes - General General: Alert and oriented X 3, No acute distress - HEENT HEENT: PERRL, Ears normal, Moist mucous membranes, Pharynx benign - Neck Neck: Supple, no meningeal sign, No bony TTP - Respiratory Respiratory: No respiratory distress, Clear bilaterally - Abdomen Abdomen: Non tender, Other (Bedside ultrasound shows single live intrauterine with a heart rate of 170) - Derm Derm: No rash - Extremities Extremities: No edema, No calf tenderness / cord - Neuro Neuro: Alert and oriented X 3, Normal speech Results - Vitals Vitals: Vital Signs - 24 hr 06/26/20 12:16 Temperature 36.9 C Heart Rate 96 Respiratory 18 Rate Blood Pressure 132/73 H O2 Saturation 98 Oxygen O2 Source Room air PD MEDICAL DECISION MAKING - ED course ED course: 25-year-old woman who is presents with what sounds like a viral URI. She is nontoxic. No evidence of bacterial infection. We will check for coronavirus but given the lack of fever this is unlikely. Departure - Departure Disposition: 01 Home, Self Care Clinical Impression: 10 weeks gestation of Upper respiratory infection Qualifiers: URI type: unspecified viral URI Qualified Code(s): J06.9 - Acute upper respiratory infection, unspecified Condition: Good Record reviewed to determine appropriate education?: Yes Instructions: ED Upper Resp Infec No Abx Tx Comments: We are performing a coronavirus test, we will call in approximately 48 to 72 hours if positive. You should home quarantine until that time just in case it is positive. Medications you can take for your symptoms that are safe in include Mucinex/guaifenesin for the congestion, or dextromethorphan- containing cough syrups without other active ingredients for the cough. Return if worse.
== END 2020-06-26 13:03 | disposition home or self-care (01) ==
LOC: ED 12:12
DX: O99.89 Other specified diseases and conditions complicating pregnancy, childbirth and the puerperium (principal); J06.9 Acute upper respiratory infection, unspecified; Z20.828 Contact with and (suspected) exposure to other viral communicable diseases; Z3A.10 10 weeks gestation of pregnancy
CPT/HCPCS: 99283

== ENCOUNTER 2020-08-31 17:44 | Outpatient (CLI) | payer MEDICAID ==
[2020-08-31 18:14] LABS: CREATININE,URINE 144.4 mg/dL
[2020-08-31 18:19] LABS: ALBUMIN 3.3 g/dL (3.2-5.5); ALBUMIN/GLOBULIN RATIO 0.9 (1.0-2.2); BILIRUBIN,TOTAL 0.5 mg/dL (0.2-1.0); CALCIUM 9.2 mg/dL (8.5-10.3); CREATININE 0.8 mg/dL (0.4-1.0)
== END 2020-08-31 17:45 | disposition home or self-care (01) ==
LOC: LAB 17:44
PROVIDERS: ATTEND Obstetrics & Gynecology
DX: O09.90 Supervision of high risk pregnancy, unspecified, unspecified trimester (principal); F43.10 Post-traumatic stress disorder, unspecified
CPT/HCPCS: 36415; 80053; 82570; 84156

== ENCOUNTER 2020-09-28 11:21 | Outpatient (CLI) | payer MEDICAID ==
[2020-09-28 11:51] LABS: BASOPHILS % (AUTO) 0.3 %; EOSINOPHILS # (AUTO) 0.2 10^3/uL (0.0-0.7); EOSINOPHILS % (AUTO) 3.2 %; HGB - HEMOGLOBIN 12.1 g/dL (12.0-16.0); LYMPHOCYTES # (AUTO) 1.9 10^3/uL (1.5-3.5); LYMPHOCYTES % (AUTO) 28.3 %; MEAN CORPUSCULAR HEMOGLOBIN 25.4 pg (27.0-31.0); MEAN CORPUSCULAR HGB CONC 31.5 g/dL (32.0-36.0); MEAN CORPUSCULAR VOLUME 80.5 fL (81.0-99.0); MEAN PLATELET VOLUME 10.8 fL (7.9-10.8); MONOCYTES # (AUTO) 0.5 10^3/uL (0.0-1.0); MONOCYTES % (AUTO) 6.7 %; NEUTROPHILS # (AUTO) 4.2 10^3/uL (1.5-6.6); NEUTROPHILS % (AUTO) 60.6 %; PLT - PLATELET COUNT 204 10^3/uL (130-450); RED BLOOD COUNT 4.77 10^6/uL (4.20-5.40); RED CELL DISTRIBUTION WIDTH 13.8 % (12.0-15.0); WHITE BLOOD COUNT 6.9 x10^3/uL (4.8-10.8)
[2020-09-28 12:08] LABS: % IRON SATURATION 18 % (20-50); IRON 80 ug/dL (28-170); TOTAL IRON BINDING CAPACITY 451 ug/dL (250-450); TRANSFERRIN 322 mg/dL (192-382)
[2020-09-29 12:31] LABS: HEPATITIS B SURFACE ANTIGEN NON-REACTIVE (NON-REACTIVE)
[2020-09-29 12:51] LABS: HIV AG/AB 4TH GEN NON-REACTIVE (NON-REACTIVE)
== END 2020-09-28 11:22 | disposition home or self-care (01) ==
LOC: LAB 11:21
PROVIDERS: ATTEND Obstetrics & Gynecology
DX: O99.011 Anemia complicating pregnancy, first trimester (principal); Z36.89 Encounter for other specified antenatal screening
CPT/HCPCS: 36415; 81599; 82728; 83021; 83540; 84466; 85014; 85018; 85025; 85041; 86592; 86762; 86850; 86900; 86901; 87340; 87389

== ENCOUNTER 2020-09-28 22:18 | Outpatient (CLI) | payer MEDICAID | END 2020-09-28 22:19 | disposition home or self-care (01) | LOC: COV 22:18 | PROVIDERS: ATTEND Family Medicine | DX: Z20.828 Contact with and (suspected) exposure to other viral communicable diseases (principal) ==

== ENCOUNTER 2020-10-05 19:56 | Outpatient (CLI) | payer MEDICAID ==
[2020-10-05 21:22] LABS: % IRON SATURATION 10 % (20-50); IRON 44 ug/dL (28-170); TOTAL IRON BINDING CAPACITY 431 ug/dL (250-450); TRANSFERRIN 308 mg/dL (192-382)
== END 2020-10-05 19:57 | disposition home or self-care (01) ==
LOC: LAB 19:56
PROVIDERS: ATTEND Obstetrics & Gynecology
DX: O99.011 Anemia complicating pregnancy, first trimester (principal); D50.9 Iron deficiency anemia, unspecified
CPT/HCPCS: 82728; 83540; 84466

== ENCOUNTER 2020-10-13 21:35 | Outpatient (CLI) | payer MEDICAID ==
[2020-10-13 22:10] LABS: BASOPHILS % (AUTO) 0.4 %; EOSINOPHILS # (AUTO) 0.2 10^3/uL (0.0-0.7); EOSINOPHILS % (AUTO) 3.1 %; LYMPHOCYTES # (AUTO) 1.8 10^3/uL (1.5-3.5); MEAN CORPUSCULAR HEMOGLOBIN 25.9 pg (27.0-31.0); MEAN CORPUSCULAR HGB CONC 32.1 g/dL (32.0-36.0); MEAN CORPUSCULAR VOLUME 80.7 fL (81.0-99.0); MEAN PLATELET VOLUME 10.9 fL (7.9-10.8); MONOCYTES # (AUTO) 0.4 10^3/uL (0.0-1.0); MONOCYTES % (AUTO) 5.6 %; NEUTROPHILS # (AUTO) 5.2 10^3/uL (1.5-6.6); PLT - PLATELET COUNT 189 10^3/uL (130-450); RED BLOOD COUNT 4.25 10^6/uL (4.20-5.40); RED CELL DISTRIBUTION WIDTH 13.8 % (12.0-15.0); WHITE BLOOD COUNT 7.7 x10^3/uL (4.8-10.8)
[2020-10-13 22:18] LABS: PROTEIN/CREATININE RATIO,URINE 0.1 (<=0.2)
[2020-10-13 22:21] LABS: CREATININE 0.6 mg/dL (0.4-1.0); URIC ACID 4.4 mg/dL (2.6-7.2)
[2020-10-13 23:55] VITALS: BP 118/77
--- NOTE | 2020-10-14 11:42 | PROVIDER PROGRESS NOTE ---
- HPI Chief Complaint: Other Current : Current EDU 01/17/21 Gestation 26 Weeks and 2 Days 2 Para 1 Vital Signs Temperature 98.8 F 10/13/20 22:10 Heart Rate 95 10/13/20 22:10 Respiratory Rate 22 10/13/20 22:10 Blood Pressure 129/73 10/13/20 22:10 O2 Saturation 100 10/13/20 22:10 Temperature 98.8 F 10/13/20 22:10 Heart Rate 92 10/13/20 23:15 Respiratory Rate 20 10/13/20 23:00 Blood Pressure 118/77 10/13/20 23:45 O2 Saturation 100 10/13/20 22:10 - Plan Plan: CC; elevated BP HPI: got BP monitor today, checked BP and it was 160s/90s. was 13 0/80s. Worried. No CRAMER, visual changes, or upper abdominal pain. No VB, UC, or LOF. Good FM. All BP here normal Alert, resting, NAD Abd soft, nt/nd No LE edema NST baseline 130bpm, moderate variability, decels absent, accels present [place] neg PIH labs normal Urine P:C 0.1 A/P: 25yo with elevated BP at home without hypertension. checked due to hx of preeclampsia with prior . Check BP at home only when resting, not talking, legs not crossed. If >140/90 then return to triage and bring home BP cuff with her. Category 1 NST. Reassuring surveillance. Follow up routine clinic in 3w.
== END 2020-10-14 00:05 | disposition home or self-care (01) ==
LOC: WFO 21:35 → FBP 21:40 → WFO 10-14 00:05
PROVIDERS: ATTEND Obstetrics & Gynecology
DX: O99.891 Other specified diseases and conditions complicating pregnancy (principal); R03.0 Elevated blood-pressure reading, without diagnosis of hypertension; Z3A.26 26 weeks gestation of pregnancy
CPT/HCPCS: 36415; 82565; 82570; 84156; 84450; 84460; 84550; 85025; 99213

== ENCOUNTER 2020-10-17 09:06 | Outpatient (CLI) | payer MEDICAID ==
[2020-10-17 10:16] LABS: HGB - HEMOGLOBIN 11.8 g/dL (12.0-16.0); MEAN CORPUSCULAR HEMOGLOBIN 26.1 pg (27.0-31.0); MEAN CORPUSCULAR HGB CONC 32.8 g/dL (32.0-36.0); MEAN CORPUSCULAR VOLUME 79.6 fL (81.0-99.0); MEAN PLATELET VOLUME 10.7 fL (7.9-10.8); RED BLOOD COUNT 4.52 10^6/uL (4.20-5.40); RED CELL DISTRIBUTION WIDTH 13.8 % (12.0-15.0); WHITE BLOOD COUNT 6.7 x10^3/uL (4.8-10.8)
== END 2020-10-17 09:07 | disposition home or self-care (01) ==
LOC: LAB 09:06
PROVIDERS: ATTEND Obstetrics & Gynecology
DX: O09.90 Supervision of high risk pregnancy, unspecified, unspecified trimester (principal)
CPT/HCPCS: 36415; 81257; 81599; 82950; 85027; 86850

== ENCOUNTER 2020-10-20 06:36 | Outpatient (CLI) | payer MEDICAID | END 2020-10-20 06:37 | disposition home or self-care (01) | LOC: LAB 06:36 | PROVIDERS: ATTEND Obstetrics & Gynecology | DX: O99.810 Abnormal glucose complicating pregnancy (principal) | CPT/HCPCS: 36415; 82951; 82952 ==